=== PATIENT | male | born 1965 | race Caucasian/White ===

== ENCOUNTER 2021-06-05 16:16 | Emergency (ER) | payer OTHER, MEDICARE, MEDICAID ==
[~2021-06-05] VITALS: Ht 170.2 cm; Wt 115.9 kg
[~2021-06-05 16:16] MED LIST: IBUP-1986 PO; NO HOME MEDS
[2021-06-05 16:35] VITALS: BP 151/93
[2021-06-05] MEDS ORDERED: METH4TAB3 PO (16:42)
[2021-06-05] MEDS ORDERED: CIPR7.5D LEFT EAR (16:42)
== END 2021-06-05 17:10 | disposition home or self-care (01) ==
LOC: ER 16:17
DX: H66.92 Otitis media, unspecified, left ear (principal); Z79.2 Long term (current) use of antibiotics; Z79.899 Other long term (current) drug therapy; Z72.89 Other problems related to lifestyle; Z59.00 Homelessness unspecified
CPT/HCPCS: 99283

== ENCOUNTER 2022-05-27 13:29 | Emergency (ER) | payer OTHER, MEDICARE, MEDICAID ==
[~2022-05-27] VITALS: Ht 177.8 cm; Wt 102.0 kg
[~2022-05-27 13:29] MED LIST changes: -IBUP-1986 PO; +MECL-226 PO; -NO HOME MEDS; +OMEP20TA43 PO; +QUET200T PO; +ROSU10TA2 PO
[2022-05-27 13:52] VITALS: BP 150/86
[2022-05-27 14:31] LABS: BASOPHILS # (AUTO) 0.1 X10'3 (0-0.2); BASOPHILS % (AUTO) 0.5 % (0-1); EOSINOPHILS # (AUTO) 0.1 X10'3 (0-0.9); EOSINOPHILS % (AUTO) 1.4 % (0-6); HEMATOCRIT 46.7 % (42.0-52.0); LYMPHOCYTES # (AUTO) 1.5 X10'3 (1.1-4.8); LYMPHOCYTES % (AUTO) 16.1 % (21-51); MEAN CORPUSCULAR HEMOGLOBIN 28.4 PG (27.0-31.0); MEAN CORPUSCULAR HGB CONC 34.3 g/dL (33.0-36.5); MEAN CORPUSCULAR VOLUME 82.9 FL (78-98); MEAN PLATELET VOLUME 7.5 FL (7.4-10.4); MONOCYTES # (AUTO) 1.3 X10'3 (0-0.9); MONOCYTES % (AUTO) 13.9 % (2-12); NEUTROPHILS # (AUTO) 6.5 X10'3 (1.8-7.7); NEUTROPHILS % (AUTO) 68.1 % (42-75); PLATELET COUNT 265 X10'3 (140-440); RED BLOOD COUNT 5.63 X10'6 (4.70-6.10); RED CELL DISTRIBUTION WIDTH 14.3 % (11.5-14.5); WHITE BLOOD COUNT 9.5 X10'3 (4.5-11.0)
[2022-05-27 14:47] LABS: ALANINE AMINOTRANSFERASE 37 U/L (12-78); ALBUMIN 3.9 G/DL (3.4-5.0); ALKALINE PHOSPHATASE 146 IU/L (46-116); ANION GAP 11 (8-16); ASPARTATE AMINO TRANSFERASE 31 U/L (10-37); BILIRUBIN,TOTAL 0.5 MG/DL (0.1-1.0); BLOOD UREA NITROGEN 14 MG/DL (7-18); BUN/CREATININE RATIO 11.3 (5.4-32.0); CALCIUM 8.8 MG/DL (8.5-10.1); CHLORIDE 100 MMOL/L (99-107); CREATININE 1.24 MG/DL (0.60-1.10); GLUCOSE 95 MG/DL (70-104); LIPASE 458 U/L (73-393); POTASSIUM 3.1 MMOL/L (3.5-5.1); SODIUM 136 MMOL/L (135-145); TOTAL CARBON DIOXIDE 25.5 MMOL/L (24-32); TOTAL PROTEIN 7.9 G/DL (6.4-8.2); eGFR 60 ML/MIN
== END 2022-05-28 01:31 | disposition left against medical advice (07) ==
LOC: ER 13:29
DX: K92.1 Melena (principal); Z53.21 Procedure and treatment not carried out due to patient leaving prior to being seen by health care provider
CPT/HCPCS: 36415; 80053; 83690; 85025

== ENCOUNTER 2024-02-22 06:57 | Emergency (ER) | payer OTHER, MEDICARE, MEDICAID ==
[~2024-02-22] VITALS: Ht 170.2 cm; Wt 106.8 kg
[2024-02-22] MEDS ORDERED: NEOM10DR45 RIGHT EAR (07:43)
[2024-02-22 07:52] VITALS: BP 135/86; PULSE 75; RESP 14; TEMP 98.4; O2SAT 99
[2024-02-22] MEDS ORDERED: CIPR7.5D7 RIGHT EAR (18:59)
[2024-02-22] MEDS ORDERED: HYDR-3965 PO (18:59)
[2024-02-22] MEDS ORDERED: IBUP-1985 PO (18:59)
== END 2024-02-22 07:55 | disposition home or self-care (01) ==
LOC: ER 06:58
DX: H60.91 Unspecified otitis externa, right ear (principal); F20.9 Schizophrenia, unspecified; Z79.899 Other long term (current) drug therapy
CPT/HCPCS: 99283

== ENCOUNTER 2024-02-22 17:40 | Emergency (ER) | payer OTHER, MEDICARE, MEDICAID ==
[~2024-02-22] VITALS: Ht 170.2 cm; Wt 107.7 kg
[~2024-02-22 17:40] MED LIST changes: +NEOM10DR45 RIGHT EAR
[2024-02-22] MEDS: ketorolac trometh. 30mg/ml inj. IM ONE (18:50)
[2024-02-22] MEDS ORDERED: IBUP-1985 PO (18:59)
[2024-02-22] MEDS ORDERED: HYDR-3965 PO (18:59)
[2024-02-22] MEDS ORDERED: CIPR7.5D7 RIGHT EAR (18:59)
[2024-02-22 19:07] VITALS: BP 138/84; PULSE 88; RESP 18; TEMP 98.4; O2SAT 98
== END 2024-02-22 19:09 | disposition home or self-care (01) ==
LOC: ER 17:41
DX: H60.91 Unspecified otitis externa, right ear (principal); Z79.2 Long term (current) use of antibiotics; Z79.1 Long term (current) use of non-steroidal anti-inflammatories (NSAID); Z79.899 Other long term (current) drug therapy
CPT/HCPCS: 96372; 99283; J1885

== ENCOUNTER 2024-11-25 16:28 | Emergency (ER) | payer OTHER, MEDICARE, MEDICAID ==
[~2024-11-25] VITALS: Ht 170.2 cm; Wt 109.1 kg
[~2024-11-25 16:28] MED LIST changes: +CIPR7.5D7 RIGHT EAR; +IBUP-1985 PO; -NEOM10DR45 RIGHT EAR
[2024-11-25 16:36] VITALS: BP 138/74; PULSE 89; RESP 18; O2SAT 97
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
--- NOTE | 2024-11-25 17:17 | RADIOLOGY REPORT ---
Procedure: CT CT CERVICAL SPINE 11/25/2024 04:53 PM Indication: trauma, neck pain Comparison Study: None. Technique: Axial images were obtained and reformatted in coronal and sagittal planes. All CT scans at this medical facility are performed using dose modulation techniques as appropriate t o a performed exam including the following: Automated exposure control was utilized; adjustment of th e MA and/or KV according to patient size; and use of iterative reconstruction technique. CT Dose: CTDI volume is 24 mGy. Dose-length product is 140 mGy*cm FINDINGS: Bones: The vertebrae are normal in height. Normal alignment of the vertebrae. Lateral masses C1 and C2 are well aligned. The posterior facet joints are well aligned. Moderate reduction of C6-C7 disc he ight. Discogenic endplate changes are seen at several levels. The osseous central canal and neural f oramina appear patent. Soft tissues: Paraspinal and prevertebral soft tissues are within normal limits. Other: Moderate opacification of the Partially seen left mastoid air cells. IMPRESSION: 1. Straightening of normal lordosis that could be positional, reflect muscle spasm or pain. Correlate clinically. 2. No acute osseous abnormality. 3. Multilevel degenerative disc disease most prominent C6-C7 level. 4. Moderate left mastoid effusion, partially seen.
[2024-11-25 19:00] VITALS: TEMP 97.5
== END 2024-11-25 19:07 | disposition home or self-care (01) ==
LOC: ER 16:29
DX: M54.2 Cervicalgia (principal); F20.9 Schizophrenia, unspecified; Z79.899 Other long term (current) drug therapy; Z59.00 Homelessness unspecified; Z72.89 Other problems related to lifestyle; V43.52XA Car driver injured in collision with other type car in traffic accident, initial encounter; Y93.89 Activity, other specified; Y92.89 Other specified places as the place of occurrence of the external cause; Y99.8 Other external cause status
CPT/HCPCS: 72125; 99284; L0172

== ENCOUNTER 2025-06-05 00:44 | Emergency (ER) | payer OTHER, MEDICARE, MEDICAID ==
[~2025-06-05] VITALS: Ht 170.2 cm; Wt 114.4 kg
[~2025-06-05 00:44] MED LIST changes: -IBUP-1985 PO; +IBUP600T52 PO
[2025-06-05 00:46] VITALS: TEMP 97.6
[2025-06-05 01:03] LABS: MEAN PLATELET VOLUME 6.9 FL (7.4-10.4); RED CELL DISTRIBUTION WIDTH 13.5 % (11.5-14.5)
--- NOTE | 2025-06-05 01:08 | Physician Documentation ---
History of Present Illness ~ Chief Complaint: Chest Pain Stated Complaint: CHEST PAIN/SOB Time Seen by MD: 01:07 Primary Medical Doctor: [facility] Mode of Arrival: POV, Ambulatory HPI 60-year-old male presenting with chest pain He tells me that he felt normal yesterday when he went to bed. He woke from sleep with epigastric pain and lower central chest pain. No radiation of the pain. He stated the pain was very significant to the point where he could not get comfortable. He did feel short of breath earlier but not currently. He also reports having a large ventral hernia that seems to be bulging out more than previous. No fevers or chills. No vomiting. No productive cough. No lower abdominal pain. No leg pain or swelling. Medication Reconciliation Allergies: Coded Allergies: No Known Allergies (Unverified , 11/25/24) Scheduled Ciprofloxacin HCl/Dexameth (Ciproflox-Dexameth Otic Susp), 4 DROP RIGHT EAR BID Ibuprofen (Ibuprofen), 1 TAB PO Q8H Omeprazole (Omeprazole), 2 TAB PO DAILY, (Reported) Quetiapine Fumarate (Seroquel), 1 TAB PO HS, (Reported) Rosuvastatin Calcium* (Crestor*), 1 TAB PO DAILY, (Reported) Scheduled PRN Meclizine HCl (Meclizine HCl), 1 TAB PO Q8H PRN for dizziness/vertigo Past Medical History Past Medical History: Schizophrenia Past Surgical History: no surgical history Alcohol Use: Occasionally Lives In: Homeless Review of Systems Constitutional: Denies: fever Cardiovascular: Reports: chest pain Gastrointestinal: Reports: abdominal pain Physical Exam Vital Signs: Temperature: 97.6, Source: Temporal, Heart Rate: 70, Respiratory Rate: 16, BP: 168/93, Pulse Oximetry: 99, Weight: 114.400 Physical Exam General: This is a pleasant middle-aged man, not in acute distress currently, at bedside HEENT: Atraumatic, oropharynx is moist Heart: Regular rate and rhythm, normal-appearing peripheral perfusion Chest wall: No reproducible tenderness on palpation of the anterior ribs Lungs: Clear breath sounds bilateral, normal work of breathing, normal oxygen saturation on room air Abdomen: Soft, nondistended, large ventral hernia. The hernia soft and easily reducible. He states that it actually feels better when I push in his hernia, denies any significant tenderness or pain. Extremities: Warm and well-perfused, no calf edema or tenderness Neuro: Alert and oriented Psychiatric: Calm and cooperative with exam Progress Results/Orders Results/Orders Orders - CAITLIN SANCHEZ MD Chest,Single View (06/05/25 00:56) Monitor (06/05/25 00:56) Saline Lock (06/05/25 00:56) Oxygen (06/05/25 00:56) Electrocardiogram (06/05/25 00:56) General Nursing Order (06/05/25 ) Cta Chest Abdomen Pelvis (06/05/25 04:00) Completed Orders - CAITLIN SANCHEZ MD Chest,Single View (06/05/25 00:56) Cbc/Diff (06/05/25 00:56) BMP (06/05/25 00:56) PBNP (06/05/25 00:56) Hs Troponin I W Calculations (06/05/25 00:56) Hs Troponin I W Calculations (06/05/25 02:56) CMP (06/05/25 00:56) Ketorolac Trometh 15mg/Ml Vial (Toradol (06/05/25 01:20) Mag & Alum Hydrox/Simeth Susp (Maalox Or (06/05/25 01:20) Ketorolac Trometh 15mg/Ml Vial (Toradol (06/05/25 01:45) Mag & Alum Hydrox/Simeth Susp (Maalox Or (06/05/25 01:45) Ketorolac Trometh 15mg/Ml Vial (Toradol (06/05/25 02:00) Mag & Alum Hydrox/Simeth Susp (Maalox Or (06/05/25 02:00) Cta Chest Abdomen Pelvis (06/05/25 04:00) Iohexol 350mg/Ml 100ml (Omnipaque 350mg/ (06/05/25 03:48) Medications Received in ER Medications (Trade) Dose Ordered Sig/Henry Route PRN Reason Start Time Stop Time Status Last Admin Dose Admin (Toradol injection) 15 mg ONCE ONCE IV 06/05/25 01:20 06/05/25 01:21 DC 06/05/25 01:52 15 MG (Maalox oral suspension) 30 ml ONCE ONCE PO 06/05/25 01:20 06/05/25 01:21 DC 06/05/25 01:51 30 ML Vital Signs 06/05/25 06/05/25 06/05/25 06/05/25 00:46 01:35 01:35 01:52 Temp 97.6 Pulse 82 70 Resp 16 16 18 16 B/P (MAP) 153/84 168/93 (118) Pulse Ox 97 99 06/05/25 06/05/25 02:40 02:40 Pulse 75 Resp 16 16 B/P (MAP) 139/79 (99) Pulse Ox 98 Laboratory Tests Test 06/05/25 00:56 06/05/25 02:47 White Blood Count 10.1 Red Blood Count 5.34 Hemoglobin 15.3 Hematocrit 43.7 Mean Corpuscular Volume 81.8 Mean Corpuscular Hemoglobin 28.6 Mean Corpuscular Hemoglobin Concent 35.0 Red Cell Distribution Width 13.5 Platelet Count 288 Mean Platelet Volume 6.9 L Neutrophils (%) (Auto) 64.2 Lymphocytes (%) (Auto) 25.0 Monocytes (%) (Auto) 7.4 Eosinophils (%) (Auto) 2.4 Basophils (%) (Auto) 1.0 Neutrophils # (Auto) 6.5 Lymphocytes # (Auto) 2.5 Monocytes # (Auto) 0.7 Eosinophils # (Auto) 0.2 Basophils # (Auto) 0.1 CBC Comment Sodium Level 139 Potassium Level 3.8 Chloride Level 105 Carbon Dioxide Level 24.6 Anion Gap 9 Blood Urea Nitrogen 12 Creatinine 1.26 H Estimated GFR/1.73 m2 58 BUN/Creatinine Ratio 9.5 L Glucose Level 135 H Calcium Level 8.4 L Total Bilirubin 0.3 Aspartate Amino Transf (AST/SGOT) 20 Alanine Aminotransferase (ALT/SGPT) 29 Alkaline Phosphatase 107 Troponin I High Sensitivity 6 6 Pro-B-Type Natriuretic Peptide < 30 Total Protein 7.6 Albumin 3.7 Globulin 3.9 Albumin/Globulin Ratio 0.9 L Chemistry Comments Troponin I High Sens Percent Delta 0 Troponin I Hi Sens Absolute Change 0 EKG/XRAY/CT/US/VASC/MRI EKG : Additional Comment I personally interpreted the EKG and this shows: Sinus rhythm, rate 80, QTC 397, no STEMI or acute ischemic changes Chest X-Ray : Additional Comments I personally interpreted the x-ray, and it shows: No focal consolidation, pneumothorax or mediastinal widening CT : Impression I personally interpreted the CT scan, and this shows no aortic dissection or aneurysm, no bowel obstruction. He does have several large gallstones Heart Score: Heart Score Response (Comments) Value History Moderate Suspicious 1 EKG Repolarization Disturb 1 Age 45-64 1 Risk Factors 1 or 2 risk factors 1 Troponin Normal limit 0 Total 4 Medical Decision Making Additional information obtaine: family Findings reports that his hernia is protruding more than normal Heart Score: 4 Differential Dx:Considerations: Include: angina, aortic dissection, chest wall pain, cholelithiasis, costochondritis, gastritis, myocardial infarction, pneumonia, pneumothorax Additional Information The patient presents with lower central chest pain/epigastric pain. By time of my evaluation his pain has somewhat improved from previous. His no significant findings on exam including no significant abdominal tenderness. Cardiac testing is unremarkable, no evidence of ACS. Chest x-ray unremarkable. We then proceeded with a CTA of the chest and abdomen, which shows no acute aortic pathology or other dangerous findings. He does have several large gallstones. I suspect his pain episode may have been biliary colic. Differential includes gastritis or something related to his hernia. Given the his pain has resolved and he is currently asymptomatic it seems reasonable for him to be discharged home with symptomatic treatment and if it continues to have episodes he will follow up in the surgery clinic for evaluation of his gallbladder. Return precautions given for severe pain or worsening symptoms. Departure Time of Disposition: 05:10 Disposition: 01 HOME / SELF CARE / HOMELESS Impression: Primary Impression: Epigastric abdominal pain Condition: Improved Discharge Instructions: Biliary Colic, Adult, Nonspecific Chest Pain, Adult Referrals: NO PRIMARY CARE PROVIDER (PCP) Education Educated: Patient, Family Educated regarding: diagnosis, treatment, need for follow up Signature Scribe Signature: taylor Attestation: CAITLIN Espinal MD Jun 05, 2025 01:08
[2025-06-05 01:19] LABS: CREATININE 1.26 MG/DL (0.60-1.10); TOTAL CARBON DIOXIDE 24.6 MMOL/L (24-32); eCRCL 58 ML/MIN; eGFR 58 ML/MIN
[2025-06-05 01:26] LABS: PRO BRAIN NATRIURETIC PEPTIDE < 30 PG/ML (0-125)
--- NOTE | 2025-06-05 01:50 | RADIOLOGY REPORT ---
CHEST RADIOGRAPH Indication: CP Technique: Single frontal view of the chest was obtained COMPARISON: CHEST,SINGLE VIEW on DOS: 07/23/21 FINDINGS: Lines and Tubes: None Lungs: Clear Pleura: No pleural effusion or pneumothorax. Cardiomediastinal contours: Unremarkable IMPRESSION: No abnormality identified. No appreciable change compared to the prior chest x-ray from July 2021.
[2025-06-05] MEDS: mag hydrox/Alum hydrox/simeth 30ml oral suspension PO ONE ×3 (01:51→01:56)
[2025-06-05] MEDS: ketorolac trometh 15mg/ml vial 15 MG/ML ML IV ONE (01:52)
[2025-06-05] MEDS: ketorolac trometh 15mg/ml vial 15 MG/ML ML IM ONE ×2 (01:55→01:56)
[2025-06-05 02:40] VITALS: BP 139/79; PULSE 75; RESP 16; O2SAT 98
--- NOTE | 2025-06-05 04:41 | RADIOLOGY REPORT ---
EXAM: CT CTA CHEST ABDOMEN PELVIS W/ IV CONTRAST HISTORY: chest/abd pain, central COMPARISON: DI CHEST,SINGLE VIEW on DOS: 06/05/25, CHEST,SINGLE VIEW on DOS: 07/23/21 TECHNIQUE: Helical high resolution CT images of the chest, abdomen, and pelvis were performed with 100 ml Isovue 370 IV contrast using CTA protocol. Sagittal and coronal reformatted images and 3-D MIP images were obtained. This CT exam was performed using one or more of the following dose reduction techniques: Automated exposure control, adjustment of the mA and/or kv according to patient size, or the use of iterative reconstruction techniques. Radiation Dose: CT Dose: CTDI volume is 18.0 mGy. Dose-length product is 1178 mGy*cm FINDINGS: The thoracic aorta appears normal in caliber and contour with a 3-vessel arch. Descending and abdominal aorta appear unremarkable and normal in caliber. Celiac, superior mesenteric, inferior mesenteric arteries appear widely patent. There are bilateral single renal arteries. Iliac bifurcation and internal and external iliac branches to the femoral artery appear widely patent and unremarkable. The thyroid gland appears unremarkable. No pericardial or pleural effusion. Lungs appear clear without consolidation or suspicious nodule. There is a small hiatal hernia. Liver demonstrates atypical enhancement in the left hepatic lobe which may represent small shunt. There is cholelithiasis without evidence of wall thickening or pericholecystic fluid. The spleen, pancreas and adrenal glands appear unremarkable. The kidneys enhance symmetrically without hydronephrosis. No evidence of bowel obstruction or focal bowel wall thickening. Small left fat containing inguinal hernia and small fat containing umbilical hernia. No suspicious osseous lesion. Moderate degenerative changes of the spine. IMPRESSION: 1. No evidence of aortic aneurysm or dissection. 2. No evidence of acute pulmonary process. 3. Cholelithiasis without evidence of cholecystitis. 4. Small hiatal hernia.
--- NOTE | 2025-06-05 11:01 | ELECTROCARDIOGRAPH REPORT ---
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 Mike Rubio Measurements Intervals [place] Rate: 80 P: 60 OR: 153 QRS: 28 QRSD: 92 T: 85 QT: 344 QTc: 397 Interpretive Statements Sinus rhythm Baseline wander in lead(s) V2,V4 Electronically Signed On 06-07-2025 20:44:[address] Mike Rubio Please click the below link to view image of tracing.
== END 2025-06-05 05:19 | disposition home or self-care (01) ==
LOC: ER 00:44
DX: R10.13 Epigastric pain (principal); F20.9 Schizophrenia, unspecified; Z79.899 Other long term (current) drug therapy; Z72.89 Other problems related to lifestyle; Z59.00 Homelessness unspecified
CPT/HCPCS: 36415; 71045; 71275; 74174; 80053; 83880; 84484; 85025; 93005; 96374; 99285; J1885; Q9967; A4615